=== PATIENT | female | born 1970 | race Caucasian/White ===

== ENCOUNTER 2023-03-10 09:13 | Emergency (ER) | payer OTHER, BC ==
[2023-03-10] MEDS ORDERED: Boostrix 0.5 ML (Tdap) VIAL (>/=7 yrs of age) ONE (09:45)
[2023-03-10] MEDS ORDERED: Bacitracin 1 PK ONE (10:32)
== END 2023-03-10 10:47 | disposition home or self-care (01) ==
LOC: MADERS 09:13
DX: S06.9X1A Unspecified intracranial injury with loss of consciousness of 30 minutes or less, initial encounter (principal); S01.01XA Laceration without foreign body of scalp, initial encounter; S81.832A Puncture wound without foreign body, left lower leg, initial encounter; S50.811A Abrasion of right forearm, initial encounter; E11.9 Type 2 diabetes mellitus without complications; E03.9 Hypothyroidism, unspecified; Z79.84 Long term (current) use of oral hypoglycemic drugs; Z79.899 Other long term (current) drug therapy; Z23 Encounter for immunization; W01.10XA Fall on same level from slipping, tripping and stumbling with subsequent striking against unspecified object, initial encounter
CPT/HCPCS: 12001; 70450; 90471; 90715